=== PATIENT | male | born 1990 | race Caucasian/White ===

== ENCOUNTER 2016-11-25 06:13 | Inpatient (IN) | payer BC ==
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
--- NOTE | ~2016-11-25 | DS ---
Discharge Summary [facility] [address] [place]. [address] NAME: KENN MOROCHO : 88 STATUS : DIS IN PAT#: [id number] AGE: 26 ADM/REG DATE : 11/25/16 MR#: [id number] REPORT SERV DATE: 11/28/16 DICTATED BY: GUERA MILIAN DATE: 11/27/16 REPORT STATUS : Draft TRANSCRIBED BY: MODL DATE: 11/27/16 ADMISSION DATE: 11/25/2016 DISCHARGE DATE: 11/27/2016 PRINCIPAL DIAGNOSES: Diabetic ketoacidosis and type 1 diabetes. 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 HISTORY OF PRESENT ILLNESS: Please see Dr. Ashton dictation on 11/25/2016. HOSPITAL COURSE: The patient admitted with diabetic ketoacidosis, nausea, vomiting. The patient had ceased taking his insulin due to lack of p.o. intake and found to be in DKA. The patient has insulin infusion IV fluids with the IMCU overnight for correction of his blood sugars. Blood sugars and anion gap actually corrected overnight, but despite no order to do so, the patient's insulin infusion was discontinued over the night and he was transferred to the floor the following morning where he was found once again be in DKA as no replacement insulin had been given and no water. A report was written about this event. In any event, insulin infusion was restarted. Dextrose strip was restarted. The patient's DKA once again corrected by about 2200 hours. On the night of 11/26/2016, he was restored on his basal bolus insulin regimen. He tolerated p.o. and by 0301 hours, he was actually satisfactory for discharge having eaten breakfast and having no further symptoms. He will be released to home in satisfactory condition with a 2200-calorie ADA diet, Reglan 5 mg with meals p.r.n. He was actually found not to be typically insulin resistant and a regimen of 35 units of Levemir daily with 10 units of NovoLog with meals could be given until he followed up with Jorge Recinos, the primary care provider, for ongoing management of his type 1 diabetes. LOREN/VANESSA Guera Milian M.D. / [id number] CC: Cindy Vieira M.D.
--- NOTE | ~2016-11-25 | HP ---
History And Physical [place] [id number] [facility] [place]. [address] NAME: KENN MOROCHO : 88 STATUS : REG ER PAT#: [id number] AGE: 26 ADM/REG DATE : 11/25/16 MR#: [id number] REPORT SERV DATE: 11/25/16 DICTATED BY: SANDRA PRYOR DATE: 11/25/16 REPORT STATUS : Draft TRANSCRIBED BY: MODL DATE: 11/25/16 DATE OF ADMISSION: 11/25/2016 CHIEF COMPLAINT: Hyperglycemia. HISTORY OF PRESENT ILLNESS: The patient is a 26-year-old, white male, who is well known to the Hospitalist Service. He was last here in 12/2015 with an episode of DKA. The patient reports on Friday, 5 days prior to admission this past week, he developed nausea and vomiting. He had intermittent nausea and vomiting throughout the last several days. He stopped taking his long-acting insulin. He takes Tresiba as an outpatient due to the fact that he was worried about his sugar. He states his sugars were okay. He did present to [facility] on . There he was found to not be acidotic at that time and was ultimately sent home although he did have some mild acidemia on his basic metabolic panel. He returned to [facility] Emergency Room on Friday but there was a 2-1/2 hour wait and he went home. Again, he continued to vomit, not take his long-acting insulin. He did use some U-500 this morning. His sugar was unreadable on his machine. He presented to [facility]. He has been very weak. He has not had real abdominal pain. He has had some retching and had some flecks of blood in it but nothing significant. He was actually seen by the Critical Care Team when he got in the ER. They examined the vomit and it was mostly bilious. When he was last here in 12/2015, he had some gastritis and esophagitis and was treated for acid reflux. He was also diagnosed with gastroparesis. PAST MEDICAL HISTORY: 1. Type 1 diabetes mellitus since age 6. 2. DKA x3. 3. Nonalcoholic steatohepatitis. 4. GERD. 5. Esophagitis. 6. Gastritis. PAST SURGICAL HISTORY: He has had no surgeries. SOCIAL HISTORY: He denies alcohol or tobacco use. 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 FAMILY HISTORY: Negative for any diabetes mellitus. HOME MEDICATIONS: Reviewed and attached. REVIEW OF SYSTEMS: Ten-point review of systems obtained. Pertinent positives already mentioned in HPI. PHYSICAL EXAMINATION: VITAL SIGNS: Currently, his pulse is in the 130s, blood pressure is 145/85, temp 99.0, respiratory rate is 25-30, sats are 99%. GENERAL: Well-developed white male, in no obvious distress but tachypneic. History And Physical [address] [place]. [address] NAME: KENN MOROCHO : 88 STATUS : REG ER PAT#: [id number] AGE: 26 ADM/REG DATE : 11/25/16 MR#: [id number] REPORT SERV DATE: 11/25/16 DICTATED BY: SANDRA PRYOR DATE: 11/25/16 REPORT STATUS : Draft TRANSCRIBED BY: VANESSA DATE: 11/25/16 HEENT: Normocephalic, atraumatic. Throat is clear. NECK: Supple. HEART: Tachycardic. LUNGS: Grossly clear. ABDOMEN: Soft, nontender, nondistended. EXTREMITIES: Warm and dry. He has no peripheral edema. SKIN: Intact. No rash or lesion. LABORATORY AND X-RAY: Sodium 129, potassium 4.9, chloride 93, CO2 of 9, BUN and creatinine 16 and 1.31, glucose 459, anion gap is 27. Corrected sodium is 135. Chest x-ray is negative. Fingerstick blood sugar currently is 317. EKG shows sinus tach. Urinalysis shows large blood and 58 reds. H and H 16 and 47, white count 6.4, platelets 299. Alkaline phosphatase is 125, ALT is 95, AST is 117, lipase is 43. ABG, 7.25/15/113. Lactate is 2.2. ASSESSMENT/PLAN: 1. Type 1 diabetes mellitus with significant DKA, on presentation. We will place the patient on the DKA protocol. We will aggressively hydrate initially with normal saline and half normal saline. We will place him on an insulin drip which is weight based. He will start at 7 units/hr when his sugar reaches 200. D5 will be started in his IV fluids and his insulin drip will be cut in half. We will check fingerstick blood sugars every hour, basic metabolic panel every 4 hours. We will replace his electrolytes via the electrolyte protocol. We will monitor him very closely in the IMCU. I suspect he will need to be on an insulin drip for at least 24 hours. 2. Nausea and vomiting. I suspect this is mostly exacerbated by the DKA. He may have had a viral illness. His abdomen is benign. His white count is normal. I am going to check a procalcitonin. His lipase is normal. He does have elevated transaminases mildly but he has had this in the past from fatty liver and this was consistent with his prior presentation. We will watch him closely. We will provide aggressive fluid resuscitation. IV Reglan and Zofran to help with nausea and vomiting. 3. History of gastroparesis. I am going to add some Reglan over the next 24 hours and see if we can get his nausea and vomiting under control. 4. History of gastritis and esophagitis with what he reports is some flecks of blood in his sputum. I am going to cover him aggressively with a PPI. We will recheck his hemoglobin serially. We will aggressively fluid resuscitate. He did not have any significant hematemesis here in the emergency department. It was actually bilious according to the critical care doctor. I think he could simply be monitored. 5. Poorly-controlled diabetes mellitus. His last A1c apparently was not ideal. He states his sugars are mostly in the 200s. He has now presented with a third episode of DKA. He did not administer his long-acting insulin during this time. I am not sure if he understands the implications of not using the long-acting insulin and the fact that it can precipitate DKA, I would like him to be seen by the asthma educator again. 6. Deep venous thrombosis prophylaxis. Subcu Arixtra. I am going to hold off on that since he says he has some flecks of blood and sputum. 7. Disposition. Pending above aforementioned plan and workup. History And Physical [address] [place]. [address] NAME: KENN MOROCHO : 88 STATUS : REG ER PAT#: [id number] AGE: 26 ADM/REG DATE : 11/25/16 MR#: [id number] REPORT SERV DATE: 11/25/16 DICTATED BY: SANDRA PRYOR DATE: 11/25/16 REPORT STATUS : Draft TRANSCRIBED BY: VANESSA DATE: 11/25/16 ROGER/VANESSA Sandra Pryor M.D. / [id number] CC: Jorge Recinos M.D.
[~2016-11-25 06:13] MED LIST: *UNABLE1; AMOXIL875 PO; HUMULIN R U-500 SC; INSULIN U-500; LEVEMIR SC; LORTAB 5 PO; NOVOLOG SC; PEP20 PO; PR12.5 PO; PROTONIX PO
[2016-11-25 06:18] LABS: BASOPHILS 0.2 %; BASOPHILS ABSOLUTE 0.01 10/3/uL (0.0-0.16); EOSINOPHILS 0 %; HEMOGLOBIN 15.7 g/dL (13.6-17.8); IMMATURE GRANULOCYTES 0.9 %; LYMPHOCYTES 15.5 %; LYMPHOCYTES ABSOLUTE 0.99 10/3/uL (0.67-4.30); MEAN CORPUS HGB CONC 33.1 g/dL (32.0-36.0); MEAN CORPUSCULAR HEMOGLOB 28.5 pg (26.0-34.0); MEAN CORPUSCULAR VOLUME 86.4 fL (80-100); MEAN PLATELET VOLUME 9.4 fL (9.2-13.0); MONOCYTES 12.7 %; MONOCYTES ABSOLUTE 0.81 10/3/uL (0.21-1.20); NEUTROPHILS 70.7 %; NEUTROPHILS ABSOLUTE 4.51 10/3/uL (2.02-8.40); PLATELET COUNT 299 10/3/uL (150-400); WHITE BLOOD CELLS 6.4 10/3/uL (4.5-10.5)
[2016-11-25 06:24] LABS: HEMATOCRIT 47.5 % (40.0-51.0); IMMATURE GRANULOCYTES ABSOLUTE 0.06 10/3/uL (0.0-0.11); MANUAL DIFF NO %
[2016-11-25 06:47] LABS: ALKALINE PHOSPHATASE 125 U/L (45-117); CALCIUM, SERUM 9.3 MG/DL (8.5-10.4); CHLORIDE, SERUM 93 MMOL/L (96-112); CREATININE 1.31 MG/DL (0.70-1.30); GFR AFRICAN AMERICAN 86 ML/MIN (>=60); GFR NON AFRICAN AMERICAN 74 ML/MIN (>=60); SGOT(AST) 117 U/L (5-40); SGPT(ALT) 95 U/L (5-65); SODIUM, SERUM 129 MMOL/L (135-148)
[2016-11-25 06:49] LABS: BUN (BLOOD UREA NITROGEN) 16 MG/DL (6-23); CO2 (CARBON DIOXIDE) 9 MMOL/L (24-34); GLUCOSE, SERUM 459 MG/DL (60-99); POTASSIUM, SERUM 4.9 MMOL/L (3.5-5.3)
[2016-11-25 06:53] LABS: BAND NEUTROPHILS 4 %; ER DIFF TAT 0 Hrs 41 Mins; LYMPHOCYTES 9 %; LYMPHOCYTES ABSOLUTE (CALC) 0.58 10/3/uL (0.67-4.30); MONOCYTES 15 %; MONOCYTES ABSOLUTE (CALC) 0.96 10/3/uL (0.21-1.20); NEUTROPHILS ABSOLUTE (CALC) 4.86 10/3/uL (2.02-8.40); OVALOCYTES 1+ (3-10/OIF) (0-2/OIF); POIKILOCYTOSIS 1+ (5-10/OIF) (0-5/OIF); SEGMENTED NEUTROPHIL (0) 72 %; TOTAL NUCLEATED CELLS 100
[2016-11-25 06:54] LABS: PLATELET ESTIMATE ADQ (ADEQUATE)
[2016-11-25 07:14] LABS: ASCORBIC ACID (UR NOT ORDER) NEG (NEG); BILIRUBIN, URINE NEGATIVE (NEG); KETONE, URINE 80 MG/DL (NEG); LEUKOCYTE ESTERASE(NOT OR NEG (NEG); NITRITE (URINE) NEG (NEG); WBC (NOT ORDERED) (RFLEX) 1 (0-5)
[2016-11-25 07:17] LABS: ACETONE LARGE
[2016-11-25 07:52] LABS: CARBOXYHEMOGLOBIN 1.2 % (0-3); HCO3 (ACTUAL BICARBONATE) 6.3 MEQ/L (23-27); HEMOBLOGIN CONTENT 15.3 G/DL (14-18); INSTRUMENT SERIAL # 8087; METHEMOGLOBIN 0.5 % (0-3); O2 CONTENT 20.8 VOL% (18-24); PCO2 (CO2 TENSION) 15 MMHG (35-45); PO2 (O2 TENSION) 113 MMHG (79-93); SAMPLE Arterial; pH 7.25 (7.37-7.43)
[2016-11-25] MEDS ORDERED: TRESIBA FL100 UNIT/1 SC (08:22)
[2016-11-25] MEDS ORDERED: NOVOLOG SC (08:22)
[2016-11-25] MEDS ORDERED: PROTONIX PO (08:25)
[2016-11-25 10:28] LABS: BUN (BLOOD UREA NITROGEN) 16 MG/DL (6-23); CHLORIDE, SERUM 108 MMOL/L (96-112); CHOLESTEROL 144 MG/DL (< 200); CREATININE 1.16 MG/DL (0.70-1.30); GFR AFRICAN AMERICAN 99 ML/MIN (>=60); GFR NON AFRICAN AMERICAN 86 ML/MIN (>=60); POTASSIUM, SERUM 4.1 MMOL/L (3.5-5.3)
[2016-11-25 10:29] LABS: CALCIUM, SERUM 7.3 MG/DL (8.5-10.4); CHOL/HDL RATIO(NOT ORDER) 3.3 (0-5); CO2 (CARBON DIOXIDE) 7 MMOL/L (24-34); GLUCOSE, SERUM 208 MG/DL (60-99); HDL CHOLESTEROL 44 MG/DL (> 39); LDL CHOLESTEROL 73 MG/DL (< 130); NON-HDL CHOLESTEROL 100 MG/DL (< 160); SODIUM, SERUM 139 MMOL/L (135-148); TRIGLYCERIDE 137 MG/DL (< 150)
[2016-11-25 10:54] LABS: PROCALCITONIN 0.55 ng/mL (<0.5)
[2016-11-25 14:01] LABS: BUN (BLOOD UREA NITROGEN) 12 MG/DL (6-23); CALCIUM, SERUM 7.3 MG/DL (8.5-10.4); CHLORIDE, SERUM 106 MMOL/L (96-112); CO2 (CARBON DIOXIDE) 14 MMOL/L (24-34); CREATININE 1.13 MG/DL (0.70-1.30); GFR AFRICAN AMERICAN 103 ML/MIN (>=60); GFR NON AFRICAN AMERICAN 89 ML/MIN (>=60); GLUCOSE, SERUM 219 MG/DL (60-99); POTASSIUM, SERUM 3.9 MMOL/L (3.5-5.3); SODIUM, SERUM 139 MMOL/L (135-148)
[2016-11-25 17:33] LABS: PROCALCITONIN 0.77 ng/mL (<0.5)
[2016-11-25 18:13] LABS: HEMATOCRIT 36.2 % (40.0-51.0); HEMOGLOBIN 12.3 g/dL (13.6-17.8)
[2016-11-25 18:25] LABS: BUN (BLOOD UREA NITROGEN) 8 MG/DL (6-23); CALCIUM, SERUM 7.3 MG/DL (8.5-10.4); CHLORIDE, SERUM 107 MMOL/L (96-112); CO2 (CARBON DIOXIDE) 19 MMOL/L (24-34); CREATININE 1.17 MG/DL (0.70-1.30); GFR AFRICAN AMERICAN 98 ML/MIN (>=60); GFR NON AFRICAN AMERICAN 85 ML/MIN (>=60); GLUCOSE, SERUM 182 MG/DL (60-99); POTASSIUM, SERUM 3.3 MMOL/L (3.5-5.3); SODIUM, SERUM 139 MMOL/L (135-148)
[2016-11-25 22:50] LABS: BUN (BLOOD UREA NITROGEN) 7 MG/DL (6-23); CALCIUM, SERUM 7.8 MG/DL (8.5-10.4); CHLORIDE, SERUM 104 MMOL/L (96-112); CO2 (CARBON DIOXIDE) 21 MMOL/L (24-34); CREATININE 1.08 MG/DL (0.70-1.30); GFR AFRICAN AMERICAN 108 ML/MIN (>=60); GFR NON AFRICAN AMERICAN 94 ML/MIN (>=60); GLUCOSE, SERUM 168 MG/DL (60-99); POTASSIUM, SERUM 3.2 MMOL/L (3.5-5.3); SODIUM, SERUM 138 MMOL/L (135-148)
[2016-11-26 05:43] LABS: INFLUENZA A SCREEN NEGATIVE (NEGATIVE); INFLUENZA B SCREEN NEGATIVE (NEGATIVE)
[2016-11-26 06:17] LABS: BASOPHILS 1.4 %; BASOPHILS ABSOLUTE 0.07 10/3/uL (0.0-0.16); EOSINOPHILS 0.4 %; EOSINOPHILS ABSOLUTE 0.02 10/3/uL (0.0-0.53); HEMATOCRIT 40.3 % (40.0-51.0); HEMOGLOBIN 14.3 g/dL (13.6-17.8); IMMATURE GRANULOCYTES 1.6 %; IMMATURE GRANULOCYTES ABSOLUTE 0.08 10/3/uL (0.0-0.11); LYMPHOCYTES ABSOLUTE 1.89 10/3/uL (0.67-4.30); MANUAL DIFF NO %; MEAN CORPUS HGB CONC 35.5 g/dL (32.0-36.0); MEAN CORPUSCULAR HEMOGLOB 29.5 pg (26.0-34.0); MEAN CORPUSCULAR VOLUME 83.3 fL (80-100); MEAN PLATELET VOLUME 8.8 fL (9.2-13.0); MONOCYTES 17.9 %; MONOCYTES ABSOLUTE 0.89 10/3/uL (0.21-1.20); NEUTROPHILS 40.7 %; NEUTROPHILS ABSOLUTE 2.03 10/3/uL (2.02-8.40); PLATELET COUNT 269 10/3/uL (150-400); RBC DISTRIBUTION WIDTH 12.6 % (12.0-16.0); RED CELL COUNT 4.84 10/6/uL (4.7-6.1)
[2016-11-26 06:37] LABS: ALBUMIN 3.3 G/DL (3.5-5.0); BUN (BLOOD UREA NITROGEN) 4 MG/DL (6-23); CALCIUM, SERUM 8.6 MG/DL (8.5-10.4); CHLORIDE, SERUM 101 MMOL/L (96-112); CO2 (CARBON DIOXIDE) 22 MMOL/L (24-34); GFR AFRICAN AMERICAN 135 ML/MIN (>=60); GFR NON AFRICAN AMERICAN 117 ML/MIN (>=60); GLOBULIN 3.4 G/DL (2.5-4.1); GLUCOSE, SERUM 162 MG/DL (60-99); POTASSIUM, SERUM 3.1 MMOL/L (3.5-5.3); SGOT(AST) 62 U/L (5-40); SGPT(ALT) 68 U/L (5-65); SODIUM, SERUM 136 MMOL/L (135-148); TOTAL BILIRUBIN 0.6 MG/DL (0-1.2); TOTAL PROTEIN 6.7 G/DL (6.0-8.5)
[2016-11-26 06:39] LABS: ALKALINE PHOSPHATASE 99 U/L (45-117)
[2016-11-26 09:59] LABS: BUN (BLOOD UREA NITROGEN) 6 MG/DL (6-23); CALCIUM, SERUM 8.1 MG/DL (8.5-10.4); CHLORIDE, SERUM 98 MMOL/L (96-112); CO2 (CARBON DIOXIDE) 18 MMOL/L (24-34); GFR AFRICAN AMERICAN 119 ML/MIN (>=60); GFR NON AFRICAN AMERICAN 103 ML/MIN (>=60); GLUCOSE, SERUM 393 MG/DL (60-99); POTASSIUM, SERUM 3.8 MMOL/L (3.5-5.3); SODIUM, SERUM 135 MMOL/L (135-148)
[2016-11-26 13:51] LABS: BUN (BLOOD UREA NITROGEN) 10 MG/DL (6-23); CALCIUM, SERUM 8.4 MG/DL (8.5-10.4); CHLORIDE, SERUM 96 MMOL/L (96-112); CO2 (CARBON DIOXIDE) 11 MMOL/L (24-34); CREATININE 1.03 MG/DL (0.70-1.30); GFR AFRICAN AMERICAN 115 ML/MIN (>=60); GFR NON AFRICAN AMERICAN 99 ML/MIN (>=60); GLUCOSE, SERUM 412 MG/DL (60-99); POTASSIUM, SERUM 3.6 MMOL/L (3.5-5.3); SODIUM, SERUM 134 MMOL/L (135-148)
[2016-11-26 18:41] LABS: BUN (BLOOD UREA NITROGEN) 8 MG/DL (6-23); CALCIUM, SERUM 8.4 MG/DL (8.5-10.4); CHLORIDE, SERUM 104 MMOL/L (96-112); CREATININE 1.01 MG/DL (0.70-1.30); GFR AFRICAN AMERICAN 118 ML/MIN (>=60); GFR NON AFRICAN AMERICAN 101 ML/MIN (>=60); POTASSIUM, SERUM 3.4 MMOL/L (3.5-5.3); SODIUM, SERUM 139 MMOL/L (135-148)
[2016-11-26 18:42] LABS: CO2 (CARBON DIOXIDE) 18 MMOL/L (24-34); GLUCOSE, SERUM 104 MG/DL (60-99)
[2016-11-26 22:27] LABS: BUN (BLOOD UREA NITROGEN) 8 MG/DL (6-23); CALCIUM, SERUM 8.1 MG/DL (8.5-10.4); CHLORIDE, SERUM 103 MMOL/L (96-112); CO2 (CARBON DIOXIDE) 24 MMOL/L (24-34); CREATININE 0.98 MG/DL (0.70-1.30); GFR AFRICAN AMERICAN 122 ML/MIN (>=60); GFR NON AFRICAN AMERICAN 105 ML/MIN (>=60); GLUCOSE, SERUM 86 MG/DL (60-99); SODIUM, SERUM 137 MMOL/L (135-148)
[2016-11-27 07:19] LABS: BUN (BLOOD UREA NITROGEN) 6 MG/DL (6-23); CALCIUM, SERUM 8.5 MG/DL (8.5-10.4); CHLORIDE, SERUM 100 MMOL/L (96-112); CO2 (CARBON DIOXIDE) 27 MMOL/L (24-34); CREATININE 0.91 MG/DL (0.70-1.30); GFR AFRICAN AMERICAN 133 ML/MIN (>=60); GFR NON AFRICAN AMERICAN 115 ML/MIN (>=60); GLUCOSE, SERUM 108 MG/DL (60-99); PHOSPHORUS, SERUM 2.1 MG/DL (2.5-4.5); SODIUM, SERUM 139 MMOL/L (135-148)
[2016-11-27] MEDS ORDERED: REG5 PO (08:57)
[2016-11-27] MEDS ORDERED: MVI PO (09:00)
[2016-12-26] MEDS ORDERED: PR25 PO (20:20)
[2017-05-12] MEDS ORDERED: NOVOLOG SC (18:23)
[2017-05-12] MEDS ORDERED: TRESIBA FL200 UNIT/1 SC (18:23)
[2017-05-12] MEDS ORDERED: PR25 PO (18:23)
[2017-05-12] MEDS ORDERED: PROTONIX PO (18:24)
[2017-05-17] MEDS ORDERED: ASTELIN (10:13)
[2017-05-17] MEDS ORDERED: CEFT5 PO (10:15)
[2017-05-23] MEDS ORDERED: ZITH250 PO (14:26)
[2017-05-23] MEDS ORDERED: ASAB PO (14:30)
== END 2016-11-27 09:39 | disposition home or self-care (01) | DRG 639 ==
LOC: ER 06:13 → ER/OF 11:34 → IMCU 13:09 → 1SO 11-26 07:20
PROVIDERS: Internal Medicine; Nurse Practitioner Acute Care
DX: E10.10 Type 1 diabetes mellitus with ketoacidosis without coma (principal); K31.84 Gastroparesis; E10.43 Type 1 diabetes mellitus with diabetic autonomic (poly)neuropathy; K75.81 Nonalcoholic steatohepatitis (NASH); K21.9 Gastro-esophageal reflux disease without esophagitis; R31.9 Hematuria, unspecified; Z79.4 Long term (current) use of insulin; Z91.14 Patient's other noncompliance with medication regimen
CPT/HCPCS: 36600; 71010; 80048; 80053; 80061; 81001; 82009; 82805; 82962; 83036; 83605; 83690; 83735; 84100; 84145; 85014; 85018; 85025; 87040; 87070; 87205; 87804; 93005; 96374; 96375; 99291; A9270-GY; C9113; J1956; J2405; J2765

== ENCOUNTER 2016-12-26 20:43 | Inpatient (IN) | payer BC ==
--- NOTE | ~2016-12-26 | CN ---
Consultation Report [facility] [address] [place]. [address] NAME: KENN HUDDLESTON : 88 STATUS : ADM IN PAT#: [id number] AGE: 26 ADM/REG DATE : 12/26/16 MR#: [id number] REPORT SERV DATE: 12/27/16 DICTATED BY: SAMI ARNOLD DATE: 12/27/16 REPORT STATUS : Draft TRANSCRIBED BY: MODL DATE: 12/27/16 INPATIENT CONSULTATION DATE OF CONSULTATION: 12/27/2016 REASON FOR CONSULTATION: Nausea and vomiting, concern for gastroparesis. HISTORY OF PRESENT ILLNESS: Mr. Huddleston is a 26-year-old male with a past medical history most significant for insulin-dependent diabetes, which he has had for approximately 20 years, and recent history of episodes of nausea and vomiting with variably controlled blood sugars. The patient was admitted approximately one month ago for seven days with complaints of intermittent nausea and vomiting after having stopped taking his long-acting insulin. The patient was also recently hospitalized at [facility] just earlier this week and was admitted for several days with reported dehydration. However, now the patient presents after having recurrent symptoms one day after being discharged from [facility] and was found in the emergency department to be in diabetic ketoacidosis. The patient apparently had also had elevated blood sugars on presentation, but had reportedly had good control of his blood sugars over the preceding several days. The patient had also had an episode of altered mental status at home prior to coming to the emergency department with hallucinations/delusions, decreased mental status, and disorientation. No fevers or chills at home. No headaches by report. No abdominal pain. No change in bowel habits. The patient had undergone upper endoscopy for problems with nausea and vomiting back in 12/2015 and was found to have severe erosive esophagitis, thought likely secondary to gastroparesis during that hospitalization, for which the patient had been hospitalized for an episode of food poisoning. Currently, the patient denies any fevers or chills. No headaches, but the patient is complaining of neck rigidity and back pain. Upon presentation, the patient's white count was found to be markedly elevated at almost 40, it has now come down to 20. CRP was also elevated at 9.4. The patient's T-max since coming here has been 99. GI was consulted for question of gastroparesis exacerbation. REVIEW OF SYSTEMS: All systems were reviewed and were negative aside from what was mentioned in the history of present illness. PAST MEDICAL HISTORY: Includes: 1. Insulin-dependent diabetes mellitus. 2. Questionable history of gastroparesis. The patient has never had a formal gastric emptying study. 3. Gastroesophageal reflux disease. 4. Nonalcoholic steatohepatitis. Consultation Report [place] [id number] [place]. [address] NAME: KENN HUDDLESTON : 88 STATUS : ADM IN PAT#: [id number] AGE: 26 ADM/REG DATE : 12/26/16 MR#: [id number] REPORT SERV DATE: 12/27/16 DICTATED BY: SAMI ARNOLD DATE: 12/27/16 REPORT STATUS : Draft TRANSCRIBED BY: VANESSA DATE: 12/27/16 FAMILY HISTORY: The patient has no family history of GI-related malignancies. The patient's mother reportedly has gastroparesis. SOCIAL HISTORY: No alcohol or tobacco use. No illicit substance use. ALLERGIES: THE PATIENT HAS NO KNOWN DRUG ALLERGIES. MEDICATIONS: Outpatient medications include: 1. Insulin degludec at nighttime. 2. NovoLog sliding scale. 3. Protonix 40 mg p.o. daily. 4. Phenergan p.r.n. PHYSICAL EXAMINATION: VITAL SIGNS: Most recent vital signs include a temperature of 97.1, pulse rate of 105, a blood pressure of 107/60, saturating 99% on room air. GENERAL INSPECTION: Reveals an ill-appearing male, lying in bed, in no apparent distress. HEENT: Head is normocephalic and atraumatic with normal inspection of the oral mucosa with moist mucous membranes. The patient has no scleral icterus. HEART: Rate is mildly tachycardic, but regular. PULMONARY: Lung sounds clear to auscultation. ABDOMEN: Soft, nontender, and nondistended. The patient does have active bowel sounds. No masses were appreciated. EXTREMITIES: The patient has no cyanosis, clubbing, or edema. SKIN: No jaundice or rash. NEURO: No gross motor deficits. He is alert and oriented, but seems somnolent. The patient does respond to questions, but is allowing his family to answer almost all questions for him. LABORATORY DATA: Most recent laboratory results include a CBC that showed a white count of 20.5, hemoglobin of 11.8, and a platelet count of 296,000. Sed rate was only 2. INR was 1.4. CRP was 9.4, which is significantly elevated. Procalcitonin was 2.93. Electrolyte panel showed a bicarb of 18, but electrolytes were otherwise unremarkable. Glucose was 235. LFTs were normal. TSH was 2.1. No pertinent imaging to review. ASSESSMENT AND PLAN: Mr. Huddleston is a very pleasant 26-year-old male with a past medical history of insulin-dependent diabetes, who has had intermittent problems with control of his blood sugar as well as nausea and vomiting. It is not necessarily clear that the episodes of nausea and vomiting are associated with uncontrolled blood sugars or which one proceeds the other. However, it does appear that the patient has recently had issues with control of his blood sugars at least initially with having stopped his long-acting Consultation Report [facility] [address] [place]. [address] NAME: KENN HUDDLESTON : 88 STATUS : ADM IN [facility]#: [id number] AGE: 26 ADM/REG DATE : 12/26/16 MR#: [id number] REPORT SERV DATE: 12/27/16 DICTATED BY: SAMI ARNOLD DATE: 12/27/16 REPORT STATUS : Draft TRANSCRIBED BY: VANESSA DATE: 12/27/16 insulin injections. Would recommend treating the patient conservatively for now with standing doses of IV Reglan and IV Protonix and correcting the patient's diabetic ketoacidosis. Should the patient's symptoms resolve with this and there is no further indication that there may be an underlying infectious process, no further workup is likely warranted at this point. However, the patient does have elevated white count of 20 with a CRP of 9.4 and has also been complaining of back pain and neck stiffness. The patient had also been somewhat confused on presentation. While all these symptoms are likely related to the patient's diabetic ketoacidosis and his multiple episodes of vomiting with retching, would continue to monitor closely to make sure that the patient is not becoming encephalopathic, although encephalitis/meningitis both seem very unlikely in this clinical scenario. However, some other infectious process may be driving the patient's nausea and vomiting, thus leading to his poorly controlled blood sugars. The patient without a formal diagnosis of gastroparesis. Would recommend utilization of Reglan as an antiemetic for the time being, but would likely not discharge the patient on standing doses of Reglan until he can be evaluated as an outpatient with a formal gastric emptying study. Would continue treating the patient conservatively for the time being with correction of his blood sugars and systemic acidosis. Thank you very much for this interesting consult and allowing me to participate in Mr. Huddleston's care. Please call with any questions or concerns you may have. WMC/MODL Sami Arnold MD / [id number] CC: Cindy Chao M.D.
--- NOTE | ~2016-12-26 | HP ---
History And Physical [place] [id number] [facility] [place]. [address] NAME: KENN MOROCHO : 88 STATUS : ADM IN PAT#: [id number] AGE: 26 ADM/REG DATE : 12/26/16 MR#: [id number] REPORT SERV DATE: 12/27/16 DICTATED BY: CARLITA GAUTHIER DATE: 12/26/16 REPORT STATUS : Draft TRANSCRIBED BY: MODL DATE: 12/26/16 DATE OF ADMISSION: 12/26/2016 CHIEF COMPLAINT: A 26-year-old male presenting with extreme nausea, vomiting, encephalopathy, and evidence of diabetic ketoacidosis. HISTORY OF PRESENTING ILLNESS: The patient's history was obtained through careful interview with the patient, , and parents coupled with review of [facility] and [facility] medical records. The patient first became ill on 12/20/2016 (Friday prior to admission), when he developed increasing and uncontrolled nausea and vomiting. He had to go to a walk-in clinic to have a shot of Phenergan that night and was able to return back home and sleep during the night and have some relief, but then the next day, he developed extreme nausea and vomiting once again, and at this time had to go to [facility] where he was admitted for "dehydration," but was not told that he was in DKA at that time. He has been at [facility] between 12/21/2016 and 12/25/2016 by the family report and was finally discharged on the day prior to this admission. The patient had relatively good control of his blood sugars over this last four or five days at [facility], but upon returning home, apparently his blood sugars became quite elevated and the patient became increasingly ill. He also developed intractable nausea, vomiting, and then by the evening was "talking crazy" with disorientation, incoherence, hallucinations, and somnolence. He developed a rapid breathing with shortness of breath, but no cough, no chest pain. There were no fevers and chills. It was until he came into the hospital that he began to have a slight blood-tinged cough and vomit. He denies any specific abdominal pain despite his nausea. He has developed back pain just today for the first time. It is in his mid and lower back, and he is unable to really describe a precise quality or severity of that pain right now. It turns out that he has been having intractable nausea problems over the last year, it is thought that this is secondary to gastroparesis. In fact, he presented last to the hospital in October 2016, with DKA and possible gastroenteritis versus severe gastroparesis exacerbation. REVIEW OF SYSTEMS: Otherwise, a 14-point review of systems was obtained and was negative. PAST MEDICAL HISTORY: 1. Type 1 diabetes first diagnosed when he was just 6 years old. Most recent hemoglobin A1c of 9.3 on 11/25/2016. History And Physical [address] [address] NAME: KENN MOROCHO : 88 STATUS : ADM IN [facility]#: [id number] AGE: 26 ADM/REG DATE : 12/26/16 MR#: [id number] REPORT SERV DATE: 12/27/16 DICTATED BY: CARLITA GAUTHIER DATE: 12/26/16 REPORT STATUS : Draft TRANSCRIBED BY: VANESSA DATE: 12/26/16 2. Gastroparesis. 3. WONG. 4. Gastroesophageal reflux disorder with esophagitis and gastritis seen by Dr. Hyatt. 5. No previous infection history at all. The family cannot recall any incidences of pneumonia, urinary tract infection, skin infection, etc. 6. No cardiac disease, no lung disease. PAST SURGICAL HISTORY: Denies any. SOCIAL HISTORY: No tobacco abuse. No alcohol abuse. He has an 8-year-old son who lives at home. He is . His is currently . 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 He did complete some school at [employer] where he is studying criminal law and hopes to complete his degree some day. FAMILY HISTORY: Mother and father with hypertension. Mother with rheumatoid arthritis. Grandparents of heart disease. Mother with gastroparesis, but no diabetes. Siblings are all healthy. There is no family history of diabetes at all. CURRENT MEDICATIONS: 1. Sliding scale insulin. 2. Insulin degludec 35 units subcutaneous at bedtime. 3. Protonix 40 mg daily. 4. Phenergan p.r.n. PHYSICAL EXAMINATION: VITAL SIGNS: Temperature 98.7, pulse 158, blood pressure 136/70, respiratory rate 19, and O2 saturation 95% on room air. GENERAL: A quite ill and even toxic-appearing male. He appears in distress from his metabolic disease, not particularly any distress from breathing or pain. HEENT: Pupils equal, round, and reactive to light. No conjunctival pallor. No scleral icterus. Nares are patent. Oropharynx is clear of obstruction. Extremely dry mucous membranes with cracking of the tongue. NECK: Trachea midline. No thyromegaly. LYMPH: No cervical lymphadenopathy. No supraclavicular lymphadenopathy. No inguinal lymphadenopathy. RESPIRATORY: A rapid respiratory rate, but a very clear respiratory exam. He has a labored respiratory effort however, but is not in any particular overt distress from breathing, just very deep rapid breathing. CARDIOVASCULAR: Tachycardic. Regular rhythm. No murmurs, rubs, or gallops. No extremity edema is appreciated. ABDOMEN: Completely soft by exam, nontender throughout, nondistended. Active bowel sounds. No hepatosplenomegaly. DERMATOLOGICAL: Warm and dry extremities. No pallor. No cyanosis. PSYCHIATRIC: Notably flat affect, irritable mood. He is somnolent, but easily aroused. He is oriented to time and location, but has difficulty with orientation to his recent history. LABORATORY DATA: ABG demonstrates pH 7.06, PaCO2 of 9, a PaO2 of 133, and a bicarb of 3. History And Physical [address] [address] NAME: KENN MOROCHO : 88 STATUS : ADM IN [facility]#: [id number] AGE: 26 ADM/REG DATE : 12/26/16 MR#: [id number] REPORT SERV DATE: 12/27/16 DICTATED BY: CARLITA GAUTHIER DATE: 12/26/16 REPORT STATUS : Draft TRANSCRIBED BY: MODL DATE: 12/26/16 White blood cell count 39.4, hemoglobin 16, hematocrit 46, and platelets 512. Sodium 131, potassium 4.8, chloride 95, bicarb 5, BUN 27, creatinine 1.61 from a baseline creatinine of 0.9, and glucose 475. Acetone level is large. Liver enzymes within normal limits. Lipase 71. STUDIES: 1. Chest x-ray by my own evaluation shows no acute cardiopulmonary process. 2. EKG by my own evaluation shows sinus tachycardia, right axis deviation. 3. Urinalysis shows no evidence of infection. ASSESSMENT AND PLAN: 1. Severe diabetic ketoacidosis with pH of 7.06, bicarb of 3. We will give 1 L of bicarb drip then aggressive IV fluid resuscitation. Place on insulin drip IV. Start standardized DKA orders set. 2. Gastroparesis exacerbation. Place on IV Reglan. Give a dose of IV azithromycin. Consult Dr. Hyatt, animal laboratory technician, to consider other interventions? 3. Severe leukocytosis with systemic inflammatory response syndrome. He had negative chest x-ray. Negative urinalysis. Negative abdominal pain. We will check lactic acid. Check procalcitonin. Check ESR and CRP. Start empiric broad IV antibiotics for now and obtain Infectious Disease consult. Question whether occult infection is inducing the patient's severe diabetic ketoacidosis? 4. Acute kidney injury. Place on IV fluids. I did discuss the case with Critical Care Dr. Petra Burgos. KPL/MODL Carlita Gauthier M.D. / [id number] CC: Cindy Chao M.D.
--- NOTE | ~2016-12-26 | DS ---
Discharge Summary [place] [id number] [facility] [place]. [address] NAME: KENN MOROCHO : 88 STATUS : ADM IN PAT#: [id number] AGE: 26 ADM/REG DATE : 12/26/16 MR#: [id number] REPORT SERV DATE: 12/29/16 DICTATED BY: GÉNESIS PARADA DATE: 12/29/16 REPORT STATUS : Draft TRANSCRIBED BY: VANESSA DATE: 12/29/16 ADMISSION DATE: 12/26/2016 DISCHARGE DATE: ADDENDUM: TIME SPENT: 35 minutes. AIDEN/VANESSA Génesis Parada M.D. / [id number] CC: Cindy Fan M.D.
--- NOTE | ~2016-12-26 | DS ---
Discharge Summary [facility] [address] [place]. [address] NAME: KENN MOROCHO : 88 STATUS : DIS IN PAT#: [id number] AGE: 26 ADM/REG DATE : 12/26/16 MR#: [id number] REPORT SERV DATE: 12/29/16 DICTATED BY: GÉNESIS PARADA DATE: 12/29/16 REPORT STATUS : Draft TRANSCRIBED BY: MODL DATE: 12/29/16 ADMISSION DATE: 12/26/2016 DISCHARGE DATE: CONSULTING PHYSICIANS: Dr. Sami Estevez for [facility], outpatient GI Dr. Hari Hyatt. FINAL DIAGNOSES: 1. Status post diabetic ketoacidosis. 2. Abdominal pain, rule out gastroparesis, improved. 3. Gastroesophageal reflux disease with esophagitis and gastritis. 4. Hypokalemia. 5. Status post hyponatremia. 6. History of nonalcoholic steatohepatitis. 7. Status post systemic inflammatory response syndrome. 8. Dehydration. 9. Status post acute kidney injury. DIAGNOSTIC EXAMS: Chest x-ray showing no acute cardiopulmonary abnormality. HOSPITAL COURSE: Please refer to the H and P done by Dr. Luke dated on 12/26/2016. Briefly, this is a 26-year-old male, who comes in for nausea, vomiting, and hallucinations. The patient has a history of type 1 diabetes, and he said his sugar is pretty much controlled. He says, he is adherent to his medications and hovering around 150s. However, his hemoglobin A1c has always been elevated here and the most recent one we have was in 11/25/2016 with a value of 9.3. The patient has a questionable history of gastroparesis as he has this repeated nausea, vomiting. However, he does not have a formal diagnosis or test for that. So, we got GI involved. He is a patient of Dr. Hyatt. GI got the history that the patient has been doing well, whenever he is not on DKA. So, they believe that nausea and vomiting secondary to the DKA rather than a background of gastroparesis. They recommended Reglan for now, but not to discharge him on that as we do not have a formal diagnosis of it. The patient went to the IMCU with a white count of 39 and nausea, vomiting, and encephalopathy. He fits the criteria for SIRS, however we have not found any source of infection. The patient was empirically started on antibiotics. ID was consulted, and they recommended 48 hours of antibiotics unless we find something that would point to an infection. We checked a procalcitonin and that was elevated. The patient has a quick turn around though and when his DKA was resolved, he wanted to sign out against medical advice. The mom was able to keep him in the hospital and at present, he has stable vital signs, no fever, and the white count is now down to 6.2. The patient is now eager to be discharged. So, we will be discharging him with the above diagnosis. He will be on the following medications. Tresiba 35 units at bedtime, NovoLog sliding scale, Protonix 40 mg a day, Phenergan 25 mg every six hours p.r.n., and he will get just one new prescription [place] which is lisinopril 20 mg p.o. daily to maintain a better blood pressure. The patient will follow up with Dr. Jorge Recinos in one to two weeks. Follow up with Dr. Hyatt in two to four weeks. He might need a formal gastric emptying study and I advised him to be compliant with his medications and to check his sugars often. This has been explained to the patient in front of the and they agreed and understood the plan. Discharge Summary [address] [address] NAME: KENN MOROCHO : 88 STATUS : DIS IN PAT#: [id number] AGE: 26 ADM/REG DATE : 12/26/16 MR#: [id number] REPORT SERV DATE: 12/29/16 DICTATED BY: GÉNESIS PARADA DATE: 12/29/16 REPORT STATUS : Draft TRANSCRIBED BY: VANESSA DATE: 12/29/16 AIDEN/VANESSA Génesis Parada M.D. / [id number] CC: Cindy Fan M.D.
[2016-12-26 19:33] LABS: BE (BASE EXCESS) -25.1 MEQ/L (0 +/- 2.5); HCO3 (ACTUAL BICARBONATE) 2.7 MEQ/L (23-27); HEMOBLOGIN CONTENT 15.5 G/DL (14-18); INSTRUMENT SERIAL # 8087; METHEMOGLOBIN 0.6 % (0-3); O2 CONTENT 21.2 VOL% (18-24); OPERATOR ID 17589; PCO2 (CO2 TENSION) 10 MMHG (35-45); PO2 (O2 TENSION) 133 MMHG (79-93); SAMPLE Arterial; pH 7.07 (7.37-7.43)
[2016-12-26 19:38] LABS: BASOPHILS 0.5 %; EOSINOPHILS 0.2 %; EOSINOPHILS ABSOLUTE 0.07 10/3/uL (0.0-0.53); HEMOGLOBIN 15.9 g/dL (13.6-17.8); IMMATURE GRANULOCYTES 4.5 %; IMMATURE GRANULOCYTES ABSOLUTE 1.78 10/3/uL (0.0-0.11); LYMPHOCYTES 5.5 %; LYMPHOCYTES ABSOLUTE 2.18 10/3/uL (0.67-4.30); MEAN CORPUS HGB CONC 34.3 g/dL (32.0-36.0); MEAN CORPUSCULAR HEMOGLOB 30.2 pg (26.0-34.0); MEAN PLATELET VOLUME 10.2 fL (9.2-13.0); MONOCYTES 9.9 %; NEUTROPHILS 79.4 %; NEUTROPHILS ABSOLUTE 31.24 10/3/uL (2.02-8.40); RBC DISTRIBUTION WIDTH 12.8 % (12.0-16.0); RED CELL COUNT 5.26 10/6/uL (4.7-6.1)
[2016-12-26 19:39] LABS: ER CBC TAT 0 Hrs 12 Mins; HEMATOCRIT 46.4 % (40.0-51.0); MEAN CORPUSCULAR VOLUME 88.2 fL (80-100); PLATELET COUNT 512 10/3/uL (150-400); WHITE BLOOD CELLS 39.4 10/3/uL (4.5-10.5)
[2016-12-26 19:40] LABS: MANUAL DIFF NO %
[2016-12-26 19:49] LABS: ALKALINE PHOSPHATASE 88 U/L (45-117); CALCIUM, SERUM 8.9 MG/DL (8.5-10.4); CHLORIDE, SERUM 96 MMOL/L (96-112); SGOT(AST) 21 U/L (5-40); SGPT(ALT) 26 U/L (5-65)
[2016-12-26 19:51] LABS: A/G RATIO 1.2 (0.7-1.9); ALBUMIN 4.5 G/DL (3.5-5.0); BUN (BLOOD UREA NITROGEN) 27 MG/DL (6-23); CO2 (CARBON DIOXIDE) 5 MMOL/L (24-34); CREATININE 1.61 MG/DL (0.70-1.30); GFR AFRICAN AMERICAN 67 ML/MIN (>=60); GFR NON AFRICAN AMERICAN 58 ML/MIN (>=60); GLOBULIN 3.7 G/DL (2.5-4.1); GLUCOSE, SERUM 475 MG/DL (60-99); POTASSIUM, SERUM 4.8 MMOL/L (3.5-5.3); SODIUM, SERUM 131 MMOL/L (135-148); TOTAL BILIRUBIN 1.2 MG/DL (0-1.2); TOTAL PROTEIN 8.2 G/DL (6.0-8.5)
[2016-12-26 20:03] LABS: ACETONE LARGE
[2016-12-26 20:24] LABS: BAND NEUTROPHILS 5 %; ER DIFF TAT 0 Hrs 57 Mins; IMMATURE GRANS ABSOLUTE (CALC) 0.79 10/3/uL (0.0-0.11); LYMPHOCYTES 5 %; LYMPHOCYTES ABSOLUTE (CALC) 1.97 10/3/uL (0.67-4.30); METAMYELOCYTES 2 %; MONOCYTES 5 %; MONOCYTES ABSOLUTE (CALC) 1.97 10/3/uL (0.21-1.20); NEUTROPHILS ABSOLUTE (CALC) 34.67 10/3/uL (2.02-8.40); PLATELET ESTIMATE SLT INC (ADEQUATE); RBC MORPHOLOGY NORM (NORMAL); SEGMENTED NEUTROPHIL (0) 83 %; TOTAL NUCLEATED CELLS 100
[~2016-12-26 20:43] MED LIST changes: +MVI PO; +PR25 PO; +REG5 PO; +TRESIBA FL100 UNIT/1 SC
[2016-12-26 20:56] LABS: ASCORBIC ACID (UR NOT ORDER) NEG (NEG); BILIRUBIN, URINE NEGATIVE (NEG); ER URINALYSIS TAT 0 Hrs 19 Mins; KETONE, URINE 80 MG/DL (NEG); LEUKOCYTE ESTERASE(NOT OR NEG (NEG); NITRITE (URINE) NEG (NEG); WBC (NOT ORDERED) (RFLEX) 1 (0-5)
[2016-12-26 20:58] LABS: LACTATE 3.5 MMOL/L (0.3-2.4)
[2016-12-26 21:45] LABS: PROCALCITONIN 1.41 ng/mL (<0.5)
[2016-12-27 04:07] LABS: ALLENS TEST Pos; BE (BASE EXCESS) -9.5 MEQ/L (0 +/- 2.5); CARBOXYHEMOGLOBIN 0.8 % (0-3); HCO3 (ACTUAL BICARBONATE) 13.5 MEQ/L (23-27); HEMOBLOGIN CONTENT 12.8 G/DL (14-18); INSTRUMENT SERIAL # 8083; METHEMOGLOBIN 0.5 % (0-3); O2 CONTENT 17.5 VOL% (18-24); OPERATOR ID 13861; PCO2 (CO2 TENSION) 23 MMHG (35-45); PO2 (O2 TENSION) 99 MMHG (79-93); SAMPLE Arterial; pH 7.39 (7.37-7.43)
[2016-12-27 06:17] LABS: BASOPHILS 0.1 %; BASOPHILS ABSOLUTE 0.02 10/3/uL (0.0-0.16); EOSINOPHILS 0 %; EOSINOPHILS ABSOLUTE 0.01 10/3/uL (0.0-0.53); IMMATURE GRANULOCYTES 2.4 %; LYMPHOCYTES 6.9 %; LYMPHOCYTES ABSOLUTE 1.41 10/3/uL (0.67-4.30); MEAN CORPUSCULAR HEMOGLOB 29.7 pg (26.0-34.0); MEAN PLATELET VOLUME 8.9 fL (9.2-13.0); MONOCYTES 7.9 %; MONOCYTES ABSOLUTE 1.62 10/3/uL (0.21-1.20); NEUTROPHILS 82.7 %; NEUTROPHILS ABSOLUTE 16.97 10/3/uL (2.02-8.40)
[2016-12-27 06:20] LABS: HEMOGLOBIN 11.8 g/dL (13.6-17.8); RED CELL COUNT 3.97 10/6/uL (4.7-6.1); WHITE BLOOD CELLS 20.5 10/3/uL (4.5-10.5)
[2016-12-27 06:21] LABS: HEMATOCRIT 32.4 % (40.0-51.0); MANUAL DIFF NO %; MEAN CORPUS HGB CONC 36.4 g/dL (32.0-36.0); MEAN CORPUSCULAR VOLUME 81.6 fL (80-100); PLATELET COUNT 296 10/3/uL (150-400)
[2016-12-27 06:25] LABS: INTERNATIONAL NORMAL RATI 1.4 UNITS (-); PARTIAL THROMBO TIME 28.8 SEC (22.5-37.2); PROTIME (NOT ORD) 16.7 SEC (12.0-14.5)
[2016-12-27 06:42] LABS: CHLORIDE, SERUM 105 MMOL/L (96-112); CPK 36 U/L (0-200); SGOT(AST) 11 U/L (5-40); SGPT(ALT) 19 U/L (5-65); TOTAL BILIRUBIN 1.2 MG/DL (0-1.2)
[2016-12-27 06:44] LABS: A/G RATIO 1.3 (0.7-1.9); ALKALINE PHOSPHATASE 52 U/L (45-117); BUN (BLOOD UREA NITROGEN) 16 MG/DL (6-23); CALCIUM, SERUM 7.5 MG/DL (8.5-10.4); CK-MB 1.3 NG/ML; CO2 (CARBON DIOXIDE) 18 MMOL/L (24-34); GFR AFRICAN AMERICAN 119 ML/MIN (>=60); GFR NON AFRICAN AMERICAN 103 ML/MIN (>=60); GLOBULIN 2.4 G/DL (2.5-4.1); GLUCOSE, SERUM 235 MG/DL (60-99); POTASSIUM, SERUM 3.6 MMOL/L (3.5-5.3); SODIUM, SERUM 140 MMOL/L (135-148); TOTAL PROTEIN 5.4 G/DL (6.0-8.5)
[2016-12-27 06:45] LABS: TROPONIN I 0.05 NG/ML (<0.05)
[2016-12-27 06:49] LABS: C-REACTIVE PROTEIN 9.4 MG/L (<8.0)
[2016-12-27 06:56] LABS: SED RATE 2 MM/HR (0-15)
[2016-12-27 07:00] LABS: PROCALCITONIN 2.93 ng/mL (<0.5)
[2016-12-27 20:51] LABS: CALCIUM, SERUM 8.3 MG/DL (8.5-10.4); CHLORIDE, SERUM 105 MMOL/L (96-112); CREATININE 0.98 MG/DL (0.70-1.30); GFR AFRICAN AMERICAN 122 ML/MIN (>=60); GFR NON AFRICAN AMERICAN 105 ML/MIN (>=60); SODIUM, SERUM 139 MMOL/L (135-148)
[2016-12-27 20:53] LABS: BUN (BLOOD UREA NITROGEN) 8 MG/DL (6-23); CO2 (CARBON DIOXIDE) 26 MMOL/L (24-34); GLUCOSE, SERUM 151 MG/DL (60-99); PHOSPHORUS, SERUM 0.8 MG/DL (2.5-4.5); POTASSIUM, SERUM 2.9 MMOL/L (3.5-5.3)
[2016-12-28 04:36] LABS: BASOPHILS 0.1 %; BASOPHILS ABSOLUTE 0.01 10/3/uL (0.0-0.16); EOSINOPHILS 0.3 %; EOSINOPHILS ABSOLUTE 0.03 10/3/uL (0.0-0.53); HEMATOCRIT 31.3 % (40.0-51.0); HEMOGLOBIN 11.4 g/dL (13.6-17.8); IMMATURE GRANULOCYTES 0.9 %; LYMPHOCYTES 15.9 %; LYMPHOCYTES ABSOLUTE 1.85 10/3/uL (0.67-4.30); MEAN CORPUS HGB CONC 36.4 g/dL (32.0-36.0); MEAN CORPUSCULAR HEMOGLOB 30.5 pg (26.0-34.0); MEAN CORPUSCULAR VOLUME 83.7 fL (80-100); MEAN PLATELET VOLUME 8.9 fL (9.2-13.0); MONOCYTES 10.9 %; MONOCYTES ABSOLUTE 1.27 10/3/uL (0.21-1.20); NEUTROPHILS 71.9 %; NEUTROPHILS ABSOLUTE 8.36 10/3/uL (2.02-8.40); PLATELET COUNT 237 10/3/uL (150-400); RED CELL COUNT 3.74 10/6/uL (4.7-6.1)
[2016-12-28 04:37] LABS: MANUAL DIFF NO %; WHITE BLOOD CELLS 11.6 10/3/uL (4.5-10.5)
[2016-12-28 04:42] LABS: INTERNATIONAL NORMAL RATI 1.2 UNITS (-); PARTIAL THROMBO TIME 29.6 SEC (22.5-37.2); PROTIME (NOT ORD) 15.4 SEC (12.0-14.5)
[2016-12-28 04:58] LABS: A/G RATIO 1.1 (0.7-1.9); ALBUMIN 2.7 G/DL (3.5-5.0); ALKALINE PHOSPHATASE 54 U/L (45-117); C-REACTIVE PROTEIN 13.3 MG/L (<8.0); CALCIUM, SERUM 7.5 MG/DL (8.5-10.4); CHLORIDE, SERUM 106 MMOL/L (96-112); CO2 (CARBON DIOXIDE) 28 MMOL/L (24-34); CPK 39 U/L (0-200); CREATININE 0.73 MG/DL (0.70-1.30); GFR AFRICAN AMERICAN 147 ML/MIN (>=60); GFR NON AFRICAN AMERICAN 127 ML/MIN (>=60); GLOBULIN 2.5 G/DL (2.5-4.1); GLUCOSE, SERUM 134 MG/DL (60-99); POTASSIUM, SERUM 3.2 MMOL/L (3.5-5.3); SGOT(AST) 9 U/L (5-40); SGPT(ALT) 15 U/L (5-65); SODIUM, SERUM 142 MMOL/L (135-148); TOTAL BILIRUBIN 0.8 MG/DL (0-1.2); TOTAL PROTEIN 5.2 G/DL (6.0-8.5)
[2016-12-28 05:00] LABS: D-DIMER QUANTITATIVE < 0.27 ug/mLFEU (< 0.50)
[2016-12-28 05:13] LABS: BUN (BLOOD UREA NITROGEN) 4 MG/DL (6-23); CK-MB 1.1 NG/ML; PHOSPHORUS, SERUM 3.1 MG/DL (2.5-4.5)
[2016-12-28 05:14] LABS: TROPONIN I 0.28 NG/ML (<0.05)
[2016-12-28 06:45] LABS: PROCALCITONIN 1.18 ng/mL (<0.5)
[2016-12-28 08:41] LABS: SED RATE 4 MM/HR (0-15)
[2016-12-28 11:20] LABS: BUN (BLOOD UREA NITROGEN) 3 MG/DL (6-23); CHLORIDE, SERUM 101 MMOL/L (96-112); CO2 (CARBON DIOXIDE) 28 MMOL/L (24-34); CREATININE 0.71 MG/DL (0.70-1.30); GFR AFRICAN AMERICAN 149 ML/MIN (>=60); GFR NON AFRICAN AMERICAN 129 ML/MIN (>=60); POTASSIUM, SERUM 3.6 MMOL/L (3.5-5.3); SODIUM, SERUM 140 MMOL/L (135-148)
[2016-12-28 11:21] LABS: GLUCOSE, SERUM 293 MG/DL (60-99); PHOSPHORUS, SERUM 1.8 MG/DL (2.5-4.5)
[2016-12-29 07:01] LABS: BASOPHILS 0.5 %; BASOPHILS ABSOLUTE 0.03 10/3/uL (0.0-0.16); EOSINOPHILS 1.1 %; EOSINOPHILS ABSOLUTE 0.07 10/3/uL (0.0-0.53); HEMOGLOBIN 12.9 g/dL (13.6-17.8); IMMATURE GRANULOCYTES ABSOLUTE 0.06 10/3/uL (0.0-0.11); LYMPHOCYTES 28.5 %; LYMPHOCYTES ABSOLUTE 1.77 10/3/uL (0.67-4.30); MEAN CORPUS HGB CONC 35.3 g/dL (32.0-36.0); MEAN CORPUSCULAR HEMOGLOB 29.7 pg (26.0-34.0); MEAN CORPUSCULAR VOLUME 84.1 fL (80-100); MEAN PLATELET VOLUME 9.2 fL (9.2-13.0); MONOCYTES 10.3 %; MONOCYTES ABSOLUTE 0.64 10/3/uL (0.21-1.20); NEUTROPHILS 58.6 %; NEUTROPHILS ABSOLUTE 3.64 10/3/uL (2.02-8.40); PLATELET COUNT 264 10/3/uL (150-400); RBC DISTRIBUTION WIDTH 12.9 % (12.0-16.0); RED CELL COUNT 4.34 10/6/uL (4.7-6.1)
[2016-12-29 07:10] LABS: HEMATOCRIT 36.5 % (40.0-51.0); MANUAL DIFF NO %; WHITE BLOOD CELLS 6.2 10/3/uL (4.5-10.5)
[2016-12-29 07:19] LABS: BUN (BLOOD UREA NITROGEN) 3 MG/DL (6-23); CALCIUM, SERUM 8.6 MG/DL (8.5-10.4); CHLORIDE, SERUM 101 MMOL/L (96-112); CREATININE 0.56 MG/DL (0.70-1.30); GFR AFRICAN AMERICAN 164 ML/MIN (>=60); GFR NON AFRICAN AMERICAN 142 ML/MIN (>=60); POTASSIUM, SERUM 3.2 MMOL/L (3.5-5.3); SODIUM, SERUM 142 MMOL/L (135-148)
[2016-12-29 07:20] LABS: CO2 (CARBON DIOXIDE) 33 MMOL/L (24-34); GLUCOSE, SERUM 115 MG/DL (60-99); PHOSPHORUS, SERUM 4.4 MG/DL (2.5-4.5); TROPONIN I 0.15 NG/ML (<0.05)
[2016-12-29] MEDS ORDERED: PRIN20 PO (08:52)
[2017-05-12] MEDS ORDERED: NOVOLOG SC (18:23)
[2017-05-12] MEDS ORDERED: PR25 PO (18:23)
[2017-05-12] MEDS ORDERED: TRESIBA FL200 UNIT/1 SC (18:23)
[2017-05-12] MEDS ORDERED: PROTONIX PO (18:24)
[2017-05-17] MEDS ORDERED: ASTELIN (10:13)
[2017-05-17] MEDS ORDERED: CEFT5 PO (10:15)
[2017-05-23] MEDS ORDERED: ZITH250 PO (14:26)
[2017-05-23] MEDS ORDERED: ASAB PO (14:30)
== END 2016-12-29 12:00 | disposition home or self-care (01) | DRG 638 ==
LOC: ER 20:43 → IMCU 21:48 → 5SO 12-28 15:26
PROVIDERS: Emergency Medicine; Hospitalist; Internal Medicine
DX: E10.10 Type 1 diabetes mellitus with ketoacidosis without coma (principal); R65.10 Systemic inflammatory response syndrome (SIRS) of non-infectious origin without acute organ dysfunction; N17.9 Acute kidney failure, unspecified; K31.84 Gastroparesis; E10.43 Type 1 diabetes mellitus with diabetic autonomic (poly)neuropathy; Z79.4 Long term (current) use of insulin; K21.0 Gastro-esophageal reflux disease with esophagitis
CPT/HCPCS: 36600; 71010; 80048; 80053; 81001; 82009; 82330; 82550; 82553; 82803; 82805; 82947; 82962; 83605; 83690; 83735; 84100; 84132; 84145; 84295; 84443; 84484; 85014; 85025; 85379; 85610; 85652; 85730; 86140; 87040; 87641; 93005; 96365; 96375; 99291; A9270-GY; C9113; J0456; J0692; J1980; J2405; J2765; J3370